=== PATIENT | male | born 2005 | race African-American/Black ===

== ENCOUNTER 2023-08-09 12:14 | Emergency (ER) | payer OTHER ==
[~2023-08-09] VITALS: Ht 172.7 cm; Wt 71.7 kg
[2023-08-09 12:54] VITALS: BP 143/75
== END 2023-08-09 15:24 | disposition home or self-care (01) ==
LOC: ER 12:14
DX: J02.9 Acute pharyngitis, unspecified (principal)
CPT/HCPCS: 87430; 99282; J1100